=== PATIENT | male | born 1935 | race Caucasian/White ===

== ENCOUNTER 2017-07-29 16:24 | Emergency (ER) | payer MEDICARE, OTHER ==
[~2017-07-29] VITALS: Ht 175.3 cm; Wt 67.1 kg
[~2017-07-29 16:24] MED LIST: ASPI81TA31 PO; ESOM40CA PO; OXYC-133 PO; TAMS-3 PO
--- NOTE | 2017-07-29 16:58 | NUR ---
PT SEEN AND EVALUATED BY DR ANGELO.
--- NOTE | 2017-07-29 16:59 | NUR ---
FB REMOVED BY DR ANGELO. DISCHARGE INSTRUCTIONS GIVEN BY . PT DISCHARGED WALKING IN STABLE CONDITION.
--- NOTE | 2017-07-29 17:19 | NUR ---
Patient discharged to home in stable conditon. Written and verbal after care instructions given. Patient verbalizes understanding of instructions.
== END 2017-07-29 17:05 | disposition home or self-care (01) ==
LOC: ER 16:24
DX: T16.2XXA Foreign body in left ear, initial encounter (principal); I48.91 Unspecified atrial fibrillation; K21.9 Gastro-esophageal reflux disease without esophagitis; Z79.82 Long term (current) use of aspirin; X58.XXXA Exposure to other specified factors, initial encounter; Y93.89 Activity, other specified; Y92.9 Unspecified place or not applicable; Y99.9 Unspecified external cause status
CPT/HCPCS: A4663

== ENCOUNTER 2018-12-23 13:44 | Emergency (ER) | payer MEDICARE, OTHER ==
[~2018-12-23] VITALS: Ht 180.3 cm; Wt 63.5 kg
[2018-12-23] MEDS ORDERED: LIDOCAINE 4% TOPICAL 50 ML BOTTLE TP ONE (14:00)
--- NOTE | 2018-12-23 14:14 | NUR ---
PATIENT WAS SEEN BY DR MIRELES WHO WAS UNABLE TO REMOVE FOREIGN OBJECT FROM EAR. DR MIRELES CALLED DR TYREL TREADWELL OFFICE AND WAS TOLD THAT THEY ARE ABLE TO SEE HIM NOW AND TO INSTRUCT PATIENT TO GO THERE NOW. I GAVE PATIENT SPECIFIC DRIVING INSTRUCTIONS AND THE ADDRESS TO THE OFFICE AND PATIENT STATES HE UNDERSTANDS AND THAT HE WILL GO THERE RIGHT NOW. DENIES DIZZINESS OR UNSTEADYNESS.
== END 2018-12-23 14:19 | disposition home or self-care (01) ==
LOC: ER 13:44
DX: T16.1XXA Foreign body in right ear, initial encounter (principal); I48.91 Unspecified atrial fibrillation; K21.9 Gastro-esophageal reflux disease without esophagitis; Z79.82 Long term (current) use of aspirin; Z79.891 Long term (current) use of opiate analgesic; Z79.899 Other long term (current) drug therapy; X58.XXXA Exposure to other specified factors, initial encounter; Y93.89 Activity, other specified; Y92.89 Other specified places as the place of occurrence of the external cause; Y99.8 Other external cause status
CPT/HCPCS: A4663

== ENCOUNTER 2022-03-11 16:31 | Emergency (ER) | payer BC, MEDICARE, OTHER ==
[~2022-03-11] VITALS: Ht 177.8 cm; Wt 63.5 kg
[2022-03-11] MEDS ORDERED: LIDOCAINE VISCUS 2% 15 ML UDC MM ONE (17:30)
[2022-03-11] MEDS ORDERED: MAG HYDROX/AL HYDROX/SIMETH 30 ML LIQUID UDC PO ONE (17:30)
[2022-03-11] MEDS ORDERED: MAG HYDROX/AL HYDROX/SIMETH 30 ML LIQUID UDC ONE (17:34)
[2022-03-11] MEDS ORDERED: LIDOCAINE VISCUS 2% 15 ML UDC ONE (17:34)
--- NOTE | 2022-03-11 19:04 | NUR ---
Patient discharged to home in stable condition. Written and verbal after care instructions given. Patient verbalizes understanding of instructions. Stressed follow up or return to ER for worsening s/s.
[2022-03-11 19:05] VITALS: BP 144/67
== END 2022-03-11 19:06 | disposition home or self-care (01) ==
LOC: ER 16:33
DX: R09.89 Other specified symptoms and signs involving the circulatory and respiratory systems (principal); R03.0 Elevated blood-pressure reading, without diagnosis of hypertension; I48.91 Unspecified atrial fibrillation; Z95.0 Presence of cardiac pacemaker; Z79.82 Long term (current) use of aspirin; K21.9 Gastro-esophageal reflux disease without esophagitis
CPT/HCPCS: 70360; A4663